=== PATIENT | female | born 1950 | race Caucasian/White ===

== ENCOUNTER 2017-10-03 14:46 | Outpatient (CLI) | payer MEDICARE | END 2017-10-03 14:47 | disposition home or self-care (01) | LOC: BICMAMMO 14:46 | PROVIDERS: ATTEND Family Medicine | DX: Z12.31 Encounter for screening mammogram for malignant neoplasm of breast (principal) | CPT/HCPCS: 77063; 77067 ==

== ENCOUNTER 2017-10-13 08:03 | Outpatient (CLI) | payer MEDICARE | END 2017-10-13 08:04 | disposition home or self-care (01) | LOC: BICULT 08:03 | PROVIDERS: ATTEND Family Medicine | DX: R10.11 Right upper quadrant pain (principal); K80.20 Calculus of gallbladder without cholecystitis without obstruction; K76.0 Fatty (change of) liver, not elsewhere classified; R16.0 Hepatomegaly, not elsewhere classified; N28.1 Cyst of kidney, acquired | CPT/HCPCS: 76705 ==

== ENCOUNTER 2017-11-14 14:19 | Outpatient (CLI) | payer MEDICARE ==
[2017-11-14 15:42] LABS: #Basophils 0.1 thou/uL (0.0-0.2); #Eosinphils 0.2 thou/uL (0.0-0.7); #Monocytes 0.5 thou/uL (0.11-0.59); #Neutrophils 5.6 thou/uL (1.40-6.50); %Basophils 1.1 % (0.0-1.0); %Eosinophils 1.9 % (0.0-10.0); %Lymphocytes 23.6 % (21.0-51.0); %Monocytes 6.4 % (0.0-10.0); Hemoglobin 15.9 g/dL (12.0-16.0); Mean Corpuscular HGB CONC 36.3 g/dL (32.0-36.0); Mean Corpuscular Hemoglobin 32.7 pg (27.0-31.0); Mean Platelet Volume 8.5 fL (7.4-10.4); Platelet Count 179 thou/uL (130-400); RBC Distribution Width 11.6 % (11.5-14.5); Red Blood Cell (RBC) Count 4.86 mill/uL (4.20-5.40); White Blood Cell (WBC) Count 8.4 thou/uL (4.8-10.8)
[2017-11-14 15:59] LABS: ALT (SGPT) 20 U/L (8-55); AST (SGOT) 13 U/L (5-34); Albumin 4.5 g/dL (3.4-4.8); Alkaline Phosphatase 85 U/L (40-150); Anion Gap 15 mmol/L (10-20); BUN (Urea Nitrogen) 23 mg/dL (9.8-20.1); Bilirubin, Direct 0.1 mg/dL (0.1-0.3); Bilirubin, Total 0.6 mg/dL (0.2-1.2); Calc. Creatinine Clearance 0 mL/min (70-130); Calcium 9.7 mg/dL (7.8-10.44); Carbon Dioxide 23 mmol/L (23-31); Chloride 105 mmol/L (98-107); Estimated GFR-MDRD 63; Globulin 2.9 g/dL (2.4-3.5); Glucose 218 mg/dL (80-115); Potassium 4.4 mmol/L (3.5-5.1); Protein, Total 7.4 g/dL (6.0-8.3); Sodium 139 mmol/L (136-145)
--- NOTE | 2017-11-15 12:08 | EKG ---
Test Reason : Blood Pressure : / mmHG Vent. Rate : 083 BPM Atrial Rate : 083 BPM P-R Int : 184 ms QRS Dur : 112 ms QT Int : 404 ms P-R-T Axes : 051 -66 058 degrees QTc Int : 474 ms Normal sinus rhythm Left axis deviation Incomplete right bundle branch block Cannot rule out Anterior infarct , age undetermined Abnormal ECG No previous ECGs available Confirmed by LUAN NOONAN ([id number]) on 11/15/2017 12:08:12 PM Referred By: JULIO CESAR Confirmed By:LUAN NOONAN
== END 2017-11-14 14:20 | disposition home or self-care (01) ==
LOC: LABBT 14:19
PROVIDERS: ATTEND Surgery
DX: Z01.818 Encounter for other preprocedural examination (principal); K80.20 Calculus of gallbladder without cholecystitis without obstruction
CPT/HCPCS: 80053; 80076; 85025; 93005; 93010

== ENCOUNTER 2017-11-22 06:48 | Day surgery (SDC) | payer MEDICARE ==
[2017-11-14 14:52] VITALS: BMI 30.6
[2017-11-22] MEDS ORDERED: cefOXitin 2 GM VIAL ONE (07:48)
[2017-11-22] MEDS ORDERED: Sodium Chloride 0.9% 100 ML ONE (07:49)
[2017-11-22] MEDS ORDERED: Bupivacaine/Epinephrine 0.25% 30 ML VIAL ONE (08:28)
[2017-11-22] MEDS ORDERED: Promethazine HCl 25 MG/ML VIAL ONE (08:36)
[2017-11-22] MEDS ORDERED: Fentanyl 100 MCG/2 ML VIAL ONE ×2 (08:36→10:10)
[2017-11-22] MEDS ORDERED: hydrALAZINE 20 MG/ML VIAL ONE (09:45)
[2017-11-22] MEDS ORDERED: Lidocaine 1% PF 5 ML VIAL ONE (09:50)
[2017-11-22] MEDS ORDERED: PROPOFOL 200 MG/20 ML VIAL ONE (09:50)
[2017-11-22] MEDS ORDERED: Glycopyrrolate 0.2 MG/ML 5 ML SYRINGE ONE (09:50)
[2017-11-22] MEDS ORDERED: ePHEDrine/0.9% NaCl/PF SYRINGE 50 mg/10 ml ONE (09:50)
[2017-11-22] MEDS ORDERED: Ondansetron HCl/PF 4 MG/2 ML Vial ONE (09:50)
[2017-11-22] MEDS ORDERED: PHENYLEPHRINE-NS 100 MCG/ML 10 ML SYRINGE ONE (09:50)
--- NOTE | 2017-11-22 10:05 | OP ---
PREOPERATIVE DIAGNOSIS: Symptomatic cholelithiasis. SURGEON: Juan Barahona M.D. PROCEDURE PERFORMED: Laparoscopic cholecystectomy. INDICATIONS: The patient is a 67-year-old female who has been having episodic right upper quadrant p ain. Ultrasound showed cholelithiasis. FINDINGS: She had a very small caliber cystic duct. She had a fatty liver. DESCRIPTION OF PROCEDURE: After informed consent was obtained, the patient was taken to the operatin g room, given general endotracheal anesthesia. She was placed in the supine position. The abdomen w as prepped and draped in usual fashion. Local anesthesia infiltrated subcutaneously and deep. A sub umbilical incision was performed. The subcu divided sharply. The fascia grasped and two stay suture s of 0 Vicryl placed to either side of midline. Midline incised. Digital palpation revealed no loca l adhesions. A blunt 10/12 mm trocar inserted. Pneumoperitoneum was created to a pressure of 15 mmH g. Zero degree laparoscope inserted under direct vision, three 5 mm ports placed subcostally. Gallb ladder grasped and advanced superiorly. The peritoneum lysed distally to reveal the cystic duct and artery. These were triply ligated with Hemoclips and divided. The gallbladder was removed from its fossa utilizing electrocautery, removed from the abdomen through the umbilical port. Hemostasis was assured. Trocars and retractors removed. The fascia closed with interrupted 0 Vicryl suture. The s kin closed with interrupted 4-0 Rapide. Steri-Strips applied. Sterile bandages applied. Patient to lerated the procedure well and was transferred to recovery in good condition. Sponge and needle coun t verified correct x2.
== END 2017-11-22 12:02 | disposition home or self-care (01) ==
LOC: SDC 06:48
PROVIDERS: ATTEND Surgery
PROC: 0FT44ZZ Resection of Gallbladder, Percutaneous Endoscopic Approach (ICD-10-PCS; principal; 2017-11-22)
DX: K81.1 Chronic cholecystitis (principal); I10 Essential (primary) hypertension; E78.5 Hyperlipidemia, unspecified; E11.9 Type 2 diabetes mellitus without complications; N90.812 Female genital mutilation Type II status; F17.200 Nicotine dependence, unspecified, uncomplicated; Z79.4 Long term (current) use of insulin; Z79.899 Other long term (current) drug therapy
CPT/HCPCS: 36416; 88304; 96374; J0360; J0694; J2001; J2405; J2550; J2704; J3010; J7050; J7620

== ENCOUNTER 2018-09-04 13:44 | Outpatient (CLI) | payer MEDICARE ==
--- NOTE | 2018-09-04 14:51 | MRI ---
MRI BRAIN NONCONTRAST: DATE: 09/04/18 HISTORY: 68-year-old female with R51, new onset of headache after age 48. Visual changes. COMPARISON: None. FINDINGS: There are high grade bilateral degenerative facet changes in the upper cervical spine. There is high grade degenerative disc disease at C3-4. These are incompletely imaged, seen on sagittal images. Vent ricles are normal in size and configuration. No mass effect or midline shift. No evidence of recent o r remote intra-axial hemorrhage. No extra-axial fluid collection. No restricted diffusion. There is a small region of mild streaky T2 hyperintensity (demonstrated on FLAIR axial image 15 to 27 , series 7) in the posterior medial aspect of the left temporal lobe. Elsewhere, there are a few tiny punctate scattered foci of T2 hyperintensity on the order of 2 mm in size each in the bilateral phillips radiate, consistent with minimal chronic ischemic white matter jonas ges. There are mild chronic ischemic white matter changes in the darnell. IMPRESSION: 1. No acute intracranial findings. 2. Small old insult, presumably a small old infarction, at the posterior medial aspect of the le ft temporal lobe. 3. Mild chronic ischemic white matter changes of the darnell. 4. Cervical spondylosis. JN R POS: TPC
== END 2018-09-04 13:45 | disposition home or self-care (01) ==
LOC: BICMRI 13:44
PROVIDERS: ATTEND Family Medicine
DX: R51 Headache (principal); M47.812 Spondylosis without myelopathy or radiculopathy, cervical region
CPT/HCPCS: 70551

== ENCOUNTER 2019-04-25 12:19 | Outpatient (CLI) | payer MEDICARE ==
--- NOTE | 2019-04-25 13:30 | MMO ---
Bilateral MAMMO Bilat Screen [facility]. CLINICAL HISTORY: Patient is 69 years old and is seen for screening. The patient has no family history of breast cancer. The patient has no personal history of cancer. VIEWS: The views performed were: bilateral craniocaudal with tomosynthesis and bilateral mediolateral oblique with tomosynthesis. FILMS COMPARED: The present examination has been compared to prior imaging studies performed at [facility] on 10/21/2015 and 10/03/2017. This study has been interpreted with the assistance of computer-aided detection. MAMMOGRAM FINDINGS: There are scattered fibroglandular densities. Finding 1: There are stable benign appearing calcifications seen in both breasts. Finding 2: There are stable focal asymmetries seen in both breasts. There are no suspicious masses, suspicious calcifications, or new areas of architectural distortion. IMPRESSION: THERE IS NO MAMMOGRAPHIC EVIDENCE OF MALIGNANCY. A ROUTINE FOLLOW-UP MAMMOGRAM IN 1 YEAR IS RECOMMENDED. THE RESULTS OF THIS EXAM WERE SENT TO THE PATIENT. ACR BI-RADS Category 2 - Benign finding MAMMOGRAPHY NOTE: 1. A negative mammogram report should not delay a biopsy if a dominant of clinically suspicious mass is present. 2. Approximately 10% to 15% of breast cancers are not detected by mammography. 3. Adenosis and dense breasts may obscure an underlying neoplasm. Reported by: MICHAEL BURKS MD Electonically Signed: [id number]
== END 2019-04-25 12:20 | disposition home or self-care (01) ==
LOC: BICMAMMO 12:19
PROVIDERS: ATTEND Family Medicine
DX: Z12.31 Encounter for screening mammogram for malignant neoplasm of breast (principal)
CPT/HCPCS: 77063; 77067

== ENCOUNTER 2019-09-02 11:25 | Outpatient (CLI) | payer MEDICARE ==
--- NOTE | 2019-09-02 11:53 | RAD ---
Radiograph thoracic spine 3 views: 09/02/2019 HISTORY: 69-year-old female with acute left-sided thoracic back pain, status post fall last week. FINDINGS: Vertebral body heights are maintained. Mild dextroscoliosis of lower thoracic spine. Pedicles appear to be grossly intact. Several levels of mild to moderate degenerative disc disease in the mid and lower thoracic spine. IMPRESSION: 1. No compression fracture identified. 2. Mid and lower lumbar spondylosis associated with mild scoliosis.
--- NOTE | 2019-09-02 12:12 | RAD ---
EXAM: XR Ribs Lt>=2 View STANDARD PROVIDED CLINICAL HISTORY: Acute left-sided thoracic back pain after a fall last week. COMPARISON: None FINDINGS: Left lung is clear without pneumothorax or pleural effusion appreciated. Vascular calcification are s een in the thoracic aorta. No left-sided rib fracture is visualized. IMPRESSION: No left-sided rib fracture visualized.
== END 2019-09-02 11:26 | disposition home or self-care (01) ==
LOC: BICRAD 11:25
PROVIDERS: ATTEND Family Medicine
DX: M54.6 Pain in thoracic spine (principal); M47.816 Spondylosis without myelopathy or radiculopathy, lumbar region; M41.9 Scoliosis, unspecified
CPT/HCPCS: 72072

== ENCOUNTER 2021-06-02 12:38 | Outpatient (CLI) | payer MEDICARE | END 2021-06-02 12:39 | disposition home or self-care (01) | LOC: BICMAMMO 12:38 | PROVIDERS: ATTEND Family Medicine | DX: Z12.31 Encounter for screening mammogram for malignant neoplasm of breast (principal) | CPT/HCPCS: 77063; 77067 ==

== ENCOUNTER 2023-02-13 12:47 | Outpatient (CLI) | payer MEDICARE | END 2023-02-13 12:48 | disposition home or self-care (01) | LOC: BICMAMMO 12:47 | PROVIDERS: ATTEND Family Medicine | DX: Z12.31 Encounter for screening mammogram for malignant neoplasm of breast (principal) | CPT/HCPCS: 77063; 77067 ==

== ENCOUNTER 2023-12-22 14:44 | Inpatient (IN) | payer MEDICARE ==
[2023-12-22 19:58] VITALS: BMI 27.6
[2023-12-22] MEDS ORDERED: Ondansetron ODT 4 MG TAB PO PRN (20:23)
[2023-12-22] MEDS ORDERED: Ondansetron PF 4 MG/2 ML Vial IVP PRN (20:23)
[2023-12-22] MEDS ORDERED: Dextrose 5% in Water 1,000 ML IV PRN (20:27)
[2023-12-22] MEDS ORDERED: Glucagon 1 MG/ML KIT IM PRN (20:27)
[2023-12-22] MEDS ORDERED: Dextrose 50% Abboject 50 ML SYRINGE SLOW IVP PRN (20:27)
[2023-12-22] MEDS: Famotidine 20 MG TAB PO SCH (21:10)
[2023-12-22] MEDS: Atenolol 50 MG TAB PO SCH (21:10)
[2023-12-22] MEDS: Insulin Glargine 30 UNITS/0.3 ML VIAL SC SCH (21:10)
[2023-12-22] MEDS: Famotidine/PF 20 mg/2ml Vial SLOW IVP SCH (21:11)
[2023-12-22] MEDS: Atorvastatin Calcium 40 MG TAB PO SCH (21:45)
[2023-12-23 04:25] LABS: #Basophils 0.06 10x3/uL (0.0-0.2); %Basophils 0.7 % (0.0-1.0); %Eosinophils 2.9 % (0.0-10.0); %Lymphocytes 30.6 % (21.0-51.0); %Monocytes 7.5 % (0.0-10.0); %Neutrophils 57.9 % (42.0-75.0); Hematocrit 40.5 % (36.0-47.0); Hemoglobin 13.9 g/dL (12.0-16.0); Mean Corpuscular HGB CONC 34.3 g/dL (32.0-36.0); Mean Corpuscular Hemoglobin 30.5 pg (27.0-31.0); Mean Platelet Volume 10.3 fL (7.4-10.4); Platelet Count 185 10x3/uL (130-400); RBC Distribution Width 12.2 % (11.5-14.5); Red Blood Cell (RBC) Count 4.55 mill/uL (4.20-5.40)
[2023-12-23 04:43] LABS: ALT (SGPT) 20 U/L (8-55); AST (SGOT) 11 U/L (5-34); Albumin 3.3 g/dL (3.4-4.8); Alkaline Phosphatase 67 U/L (40-110); Anion Gap 15 mmol/L (10-20); BUN (Urea Nitrogen) 18 mg/dL (9.8-20.1); Bilirubin, Total 0.6 mg/dL (0.2-1.2); Calc. Creatinine Clearance 72 mL/min (70-130); Calcium 9.4 mg/dL (7.8-10.44); Carbon Dioxide 24 mmol/L (23-31); Chloride 108 mmol/L (98-107); Estimated GFR 79; Globulin 2.9 g/dL (2.4-3.5); Glucose 128 mg/dL (83-110); Potassium 3.8 mmol/L (3.5-5.1); Protein, Total 6.2 g/dL (5.8-8.1); Sodium 143 mmol/L (136-145)
[2023-12-23] MEDS ORDERED: Famotidine/PF 20 mg/2ml Vial SLOW IVP SCH (09:00)
[2023-12-23] MEDS ORDERED: Atenolol 25 MG TAB PO SCH (09:00)
[2023-12-23] MEDS ORDERED: Famotidine 20 MG TAB PO SCH (09:00)
[2023-12-23] MEDS: hydrALAZINE 20 MG/ML VIAL SLOW IVP PRN (09:13)
[2023-12-23] MEDS: Enoxaparin 40 MG (0.4 mL) SYRINGE SC SCH (09:19)
[2023-12-23] MEDS: Famotidine 20 MG TAB PO SCH (09:19)
[2023-12-23] MEDS: Clopidogrel Bisulfate 75 MG TAB PO SCH (09:19)
[2023-12-23] MEDS: levETIRAcetam 500 mg/5 ml Oral Solution PO SCH (09:20)
[2023-12-23] MEDS: Famotidine/PF 20 mg/2ml Vial SLOW IVP SCH (09:20)
[2023-12-23] MEDS: Atenolol 50 MG TAB PO SCH ×2 (11:18→20:48)
[2023-12-23] MEDS: Atorvastatin Calcium 40 MG TAB PO SCH (20:47)
[2023-12-23] MEDS: Insulin Lispro 100 UNIT/ML 10 ML VIAL SC PRN (21:07)
[2023-12-24] MEDS: Ketorolac Tromethamine 30 MG (1 mL) VIAL IVP SCH (01:30)
[2023-12-24 04:50] LABS: #Basophils 0.05 10x3/uL (0.0-0.2); %Basophils 0.5 % (0.0-1.0); %Eosinophils 2.3 % (0.0-10.0); %Lymphocytes 24.2 % (21.0-51.0); %Monocytes 7.4 % (0.0-10.0); %Neutrophils 65.1 % (42.0-75.0); Hematocrit 41.5 % (36.0-47.0); Hemoglobin 14.9 g/dL (12.0-16.0); Mean Corpuscular HGB CONC 35.9 g/dL (32.0-36.0); Mean Corpuscular Hemoglobin 30.3 pg (27.0-31.0); Mean Corpuscular Volume 84.3 fL (78.0-98.0); Mean Platelet Volume 10.8 fL (7.4-10.4); Platelet Count 191 10x3/uL (130-400); Red Blood Cell (RBC) Count 4.92 mill/uL (4.20-5.40)
[2023-12-24 05:04] LABS: Anion Gap 14 mmol/L (10-20); BUN (Urea Nitrogen) 22 mg/dL (9.8-20.1); Calc. Creatinine Clearance 67 mL/min (70-130); Calcium 9.5 mg/dL (7.8-10.44); Carbon Dioxide 24 mmol/L (23-31); Chloride 107 mmol/L (98-107); Estimated GFR 73; Glucose 142 mg/dL (83-110); Potassium 3.6 mmol/L (3.5-5.1); Sodium 141 mmol/L (136-145)
[2023-12-24] MEDS: Insulin Lispro 100 UNIT/ML 10 ML VIAL SC PRN (05:58)
[2023-12-24] MEDS ORDERED: Acetaminophen 325 MG TAB PO PRN (08:49)
[2023-12-24] MEDS ORDERED: traZODone HCl 50 MG TAB PO PRN (08:56)
[2023-12-24] MEDS: hydrALAZINE 25 MG TAB PO SCH (10:23)
[2023-12-24] MEDS: Lidocaine 4% Patch TD SCH (10:25)
[2023-12-24] MEDS: Diclofenac 1% 50 GM TOPICAL GEL TP SCH (10:26)
[2023-12-24] MEDS: Aspirin 81 mg Enteric Coated Tablet PO SCH (16:28)
[2023-12-24] MEDS: Melatonin 3 MG TAB PO SCH ×2 (19:04→22:04)
[2023-12-24] MEDS: Promethazine HCl 25 MG in Sodium Chloride 0.9% 50 ML IVPB SCH (19:14)
[2023-12-24] MEDS: Transdermal Patch Removal TOP SCH (22:07)
[2023-12-25 04:33] LABS: #Basophils 0.06 10x3/uL (0.0-0.2); %Basophils 0.7 % (0.0-1.0); %Eosinophils 2.7 % (0.0-10.0); %Lymphocytes 25.1 % (21.0-51.0); %Monocytes 7.7 % (0.0-10.0); %Neutrophils 63.6 % (42.0-75.0); Hematocrit 42.5 % (36.0-47.0); Hemoglobin 14.4 g/dL (12.0-16.0); Mean Corpuscular HGB CONC 33.9 g/dL (32.0-36.0); Mean Corpuscular Hemoglobin 30.4 pg (27.0-31.0); Mean Corpuscular Volume 89.9 fL (78.0-98.0); Mean Platelet Volume 10.5 fL (7.4-10.4); Platelet Count 191 10x3/uL (130-400); RBC Distribution Width 12.3 % (11.5-14.5); Red Blood Cell (RBC) Count 4.73 mill/uL (4.20-5.40)
[2023-12-25 05:04] LABS: Anion Gap 12 mmol/L (10-20); BUN (Urea Nitrogen) 27 mg/dL (9.8-20.1); Calc. Creatinine Clearance 66 mL/min (70-130); Calcium 9.2 mg/dL (7.8-10.44); Carbon Dioxide 24 mmol/L (23-31); Chloride 109 mmol/L (98-107); Estimated GFR 71; Glucose 219 mg/dL (83-110); Sodium 141 mmol/L (136-145)
[2023-12-25 09:05] VITALS: TEMP 98
[2023-12-25] MEDS: Aspirin 81 mg Enteric Coated Tablet PO SCH (10:10)
[2023-12-25] MEDS: Sodium Chloride 0.65% Nasal 44 ML BOT EA NARE PRN (16:09)
[2023-12-25 21:22] VITALS: BP 172/69
== END 2023-12-25 22:05 | disposition home health service (06) | DRG 66 ==
LOC: 2SE 19:35
PROVIDERS: ADMIT Specialist; ATTEND Family Medicine
PROC: 4A00X4Z Measurement of Central Nervous Electrical Activity, External Approach (ICD-10-PCS; principal; 2023-12-23)
DX: I63.532 Cerebral infarction due to unspecified occlusion or stenosis of left posterior cerebral artery (principal); Z79.899 Other long term (current) drug therapy; Z79.4 Long term (current) use of insulin; I10 Essential (primary) hypertension; Z90.49 Acquired absence of other specified parts of digestive tract; Z98.51 Tubal ligation status; Z90.89 Acquired absence of other organs; E11.40 Type 2 diabetes mellitus with diabetic neuropathy, unspecified; I65.21 Occlusion and stenosis of right carotid artery; H53.47 Heteronymous bilateral field defects; R00.1 Bradycardia, unspecified; Z79.82 Long term (current) use of aspirin; R56.9 Unspecified convulsions
CPT/HCPCS: 36415; 80048; 80053; 83735; 85025; 93005; 93010; 95816; 95819; J0360; J1650; J1815; J1885; J2550; J3490

== ENCOUNTER 2023-12-26 19:52 | Inpatient (IN) | payer MEDICARE ==
[2023-12-26 20:55] LABS: #Basophils 0.06 10x3/uL (0.0-0.2); %Basophils 0.7 % (0.0-1.0); %Eosinophils 2.4 % (0.0-10.0); %Lymphocytes 22.7 % (21.0-51.0); %Monocytes 9.4 % (0.0-10.0); %Neutrophils 64.4 % (42.0-75.0); Hematocrit 40.1 % (36.0-47.0); Hemoglobin 14.2 g/dL (12.0-16.0); Mean Corpuscular HGB CONC 35.4 g/dL (32.0-36.0); Mean Corpuscular Hemoglobin 31.1 pg (27.0-31.0); Mean Corpuscular Volume 87.7 fL (78.0-98.0); Mean Platelet Volume 10.7 fL (7.4-10.4); Platelet Count 189 10x3/uL (130-400); RBC Distribution Width 12.1 % (11.5-14.5); Red Blood Cell (RBC) Count 4.57 mill/uL (4.20-5.40)
[2023-12-26 21:11] LABS: ALT (SGPT) 29 U/L (8-55); AST (SGOT) 20 U/L (5-34); Albumin 3.6 g/dL (3.4-4.8); Alkaline Phosphatase 68 U/L (40-110); Anion Gap 12 mmol/L (10-20); BUN (Urea Nitrogen) 21 mg/dL (9.8-20.1); Bilirubin, Total 0.5 mg/dL (0.2-1.2); Calc. Creatinine Clearance 0 mL/min (70-130); Calcium 9.3 mg/dL (7.8-10.44); Carbon Dioxide 23 mmol/L (23-31); Chloride 110 mmol/L (98-107); Estimated GFR 75; Globulin 3.1 g/dL (2.4-3.5); Glucose 139 mg/dL (83-110); Magnesium 1.9 mg/dL (1.6-2.6); Potassium 3.6 mmol/L (3.5-5.1); Protein, Total 6.7 g/dL (5.8-8.1); Sodium 141 mmol/L (136-145)
[2023-12-26 21:16] LABS: Troponin I 0.021 ng/mL (< 0.028)
[2023-12-26 22:02] LABS: Bacteria/HPF None Seen HPF (None Seen); Bilirubin Negative (Negative); Blood, Urine Negative (Negative); CAUTI Indications for Culture Alt mental st,lethar; Clarity Clear (Clear); Glucose, Urine (Dipstick) 100 mg/dL (Negative); Ketone, Urine Negative (Negative); Leukocyte 25 Leu/uL (Negative); Nitrite Negative (Negative); Protein, Urine (Dipstick) Negative (Neg-Trace); RBC/HPF 0-3 HPF (0-3); Specific Gravity, Urine 1.011 (1.002-1.036); Squamous Epithelial 0-3 HPF (0-3); Urobilinogen Normal mg/dL (Less than 2); WBC/HPF 0-3 HPF (0-3)
[2023-12-26 22:06] LABS: Urine Culture Reflex No No
[2023-12-26] MEDS ORDERED: Ondansetron ODT 4 MG TAB PO PRN (22:47)
[2023-12-26] MEDS ORDERED: Ondansetron PF 4 MG/2 ML Vial IVP PRN (22:47)
[2023-12-26] MEDS ORDERED: Acetaminophen 325 MG TAB PO PRN (22:47)
[2023-12-26] MEDS ORDERED: Acetaminophen 650 MG Suppository PR PRN (22:47)
[2023-12-26] MEDS ORDERED: Glucagon 1 MG/ML KIT IM PRN (22:51)
[2023-12-26] MEDS ORDERED: Dextrose 5% in Water 1,000 ML IV PRN (22:51)
[2023-12-26] MEDS ORDERED: Insulin Lispro 100 UNIT/ML 10 ML VIAL SC PRN (22:51)
[2023-12-26] MEDS ORDERED: Dextrose 50% Abboject 50 ML SYRINGE SLOW IVP PRN (22:51)
[2023-12-26] MEDS ORDERED: Melatonin 3 MG TAB PO PRN (23:23)
[2023-12-27] MEDS ORDERED: hydrALAZINE 25 MG TAB ONE ×2 (00:16→09:19)
[2023-12-27] MEDS ORDERED: Atorvastatin Calcium 40 MG TAB ONE (00:16)
[2023-12-27] MEDS ORDERED: levETIRAcetam 500 MG TAB ONE ×2 (00:17→09:19)
[2023-12-27] MEDS: Atorvastatin Calcium 40 MG TAB PO SCH ×2 (00:24→20:44)
[2023-12-27] MEDS: levETIRAcetam 500 MG TAB PO SCH ×2 (00:29→09:49)
[2023-12-27] MEDS: hydrALAZINE 25 MG TAB PO SCH ×2 (00:29→09:48)
[2023-12-27 00:40] LABS: Phosphorus 3.4 mg/dL (2.3-4.7)
[2023-12-27 04:40] LABS: #Basophils 0.05 10x3/uL (0.0-0.2); %Basophils 0.7 % (0.0-1.0); %Eosinophils 2.7 % (0.0-10.0); %Lymphocytes 28.6 % (21.0-51.0); %Monocytes 9.7 % (0.0-10.0); %Neutrophils 57.9 % (42.0-75.0); Hematocrit 40.2 % (36.0-47.0); Hemoglobin 13.6 g/dL (12.0-16.0); Mean Corpuscular HGB CONC 33.8 g/dL (32.0-36.0); Mean Corpuscular Hemoglobin 30.2 pg (27.0-31.0); Mean Corpuscular Volume 89.3 fL (78.0-98.0); Mean Platelet Volume 10.7 fL (7.4-10.4); Platelet Count 196 10x3/uL (130-400); RBC Distribution Width 12.2 % (11.5-14.5)
[2023-12-27 05:06] LABS: Anion Gap 14 mmol/L (10-20); BUN (Urea Nitrogen) 16 mg/dL (9.8-20.1); Calc. Creatinine Clearance 0 mL/min (70-130); Carbon Dioxide 23 mmol/L (23-31); Chloride 109 mmol/L (98-107); Potassium 3.5 mmol/L (3.5-5.1); Sodium 142 mmol/L (136-145)
[2023-12-27 05:07] LABS: Calcium 9.1 mg/dL (7.8-10.44); Estimated GFR 87; Glucose 128 mg/dL (83-110)
[2023-12-27] MEDS ORDERED: Aspirin 81 mg Enteric Coated Tablet ONE (09:18)
[2023-12-27] MEDS ORDERED: Enoxaparin 40 MG (0.4 mL) SYRINGE ONE (09:19)
[2023-12-27] MEDS ORDERED: Clopidogrel Bisulfate 75 MG TAB ONE (09:19)
[2023-12-27] MEDS: Enoxaparin 40 MG (0.4 mL) SYRINGE SC SCH (11:00)
[2023-12-27] MEDS: Aspirin 81 mg Enteric Coated Tablet PO SCH (11:01)
[2023-12-27] MEDS: Clopidogrel Bisulfate 75 MG TAB PO SCH (11:01)
[2023-12-27] MEDS: Insulin Glargine 30 UNITS/0.3 ML VIAL SC SCH (11:30)
[2023-12-27 17:43] LABS: Amphetamine Not Detected (NotDetected); Barbiturates Screen Not Detected (NotDetected); Benzodiazepine Screen Not Detected (NotDetected); Cocaine Metabolite Screen Not Detected (NotDetected); Methadone Not Detected (NotDetected); Methamphetamine Not Detected (NotDetected); Opiate Screen Not Detected (NotDetected); Oxycodone Screen Not Detected (NotDetected); Phencyclidine (PCP) Not Detected (NotDetected); THC/Cannabinoid Screen Not Detected (NotDetected); Tricyclic Screen Not Detected (NotDetected)
[2023-12-27 18:36] VITALS: BMI 26.6
[2023-12-28] MEDS: hydrALAZINE 25 MG TAB PO SCH (00:50)
[2023-12-29 08:39] LABS: #Basophils 0.06 10x3/uL (0.0-0.2); %Basophils 0.8 % (0.0-1.0); %Eosinophils 1.9 % (0.0-10.0); %Monocytes 8.4 % (0.0-10.0); %Neutrophils 64.6 % (42.0-75.0); Hematocrit 44.1 % (36.0-47.0); Hemoglobin 15.3 g/dL (12.0-16.0); Mean Corpuscular HGB CONC 34.7 g/dL (32.0-36.0); Mean Corpuscular Hemoglobin 30.5 pg (27.0-31.0); Mean Platelet Volume 10.5 fL (7.4-10.4); Platelet Count 207 10x3/uL (130-400); RBC Distribution Width 11.9 % (11.5-14.5); Red Blood Cell (RBC) Count 5.01 mill/uL (4.20-5.40)
[2023-12-29 09:00] LABS: ALT (SGPT) 34 U/L (8-55); AST (SGOT) 19 U/L (5-34); Albumin 3.9 g/dL (3.4-4.8); Alkaline Phosphatase 77 U/L (40-110); Anion Gap 16 mmol/L (10-20); BUN (Urea Nitrogen) 15 mg/dL (9.8-20.1); Bilirubin, Total 0.8 mg/dL (0.2-1.2); Calc. Creatinine Clearance 68 mL/min (70-130); Calcium 9.6 mg/dL (7.8-10.44); Carbon Dioxide 24 mmol/L (23-31); Chloride 106 mmol/L (98-107); Estimated GFR 78; Glucose 180 mg/dL (83-110); Potassium 3.7 mmol/L (3.5-5.1); Protein, Total 6.9 g/dL (5.8-8.1); Sodium 142 mmol/L (136-145)
[2023-12-29] MEDS: Atenolol 50 MG TAB PO SCH (10:53)
[2023-12-29 12:38] VITALS: BP 137/77; TEMP 97.8
== END 2023-12-29 17:14 | disposition home or self-care (01) | DRG 70 ==
LOC: ERS 19:52 → SUATTDRO 19:52 → ERHOLD 22:47 → 2SW 12-27 18:21 → OBSVTOIN 12-28 14:55
PROVIDERS: ADMIT Family Medicine; ATTEND Internal Medicine
PROC: 4A00X4Z Measurement of Central Nervous Electrical Activity, External Approach (ICD-10-PCS; principal; 2023-12-27)
DX: G93.89 Other specified disorders of brain (principal); I63.532 Cerebral infarction due to unspecified occlusion or stenosis of left posterior cerebral artery; G93.40 Encephalopathy, unspecified; I35.1 Nonrheumatic aortic (valve) insufficiency; E11.65 Type 2 diabetes mellitus with hyperglycemia; I44.1 Atrioventricular block, second degree; I10 Essential (primary) hypertension; E78.00 Pure hypercholesterolemia, unspecified; G40.909 Epilepsy, unspecified, not intractable, without status epilepticus; E11.40 Type 2 diabetes mellitus with diabetic neuropathy, unspecified; F17.210 Nicotine dependence, cigarettes, uncomplicated; Z90.49 Acquired absence of other specified parts of digestive tract; Z90.89 Acquired absence of other organs; Z88.5 Allergy status to narcotic agent; Z98.51 Tubal ligation status; Z79.4 Long term (current) use of insulin; Z79.82 Long term (current) use of aspirin
CPT/HCPCS: 36415; 36416; 80048; 80053; 80306; 80307; 81001; 83735; 83880; 84100; 84443; 84484; 85025; 93005; 93306; 95819; 96372; G0378; J1650; J1815

== ENCOUNTER 2024-03-20 13:04 | Emergency (ER) | payer MEDICARE ==
[2024-03-20 13:46] LABS: #Basophils 0.08 10x3/uL (0.0-0.2); %Eosinophils 2.8 % (0.0-10.0); %Lymphocytes 20.7 % (21.0-51.0); %Monocytes 6.8 % (0.0-10.0); %Neutrophils 68.5 % (42.0-75.0); Hematocrit 40.5 % (36.0-47.0); Hemoglobin 14.4 g/dL (12.0-16.0); Mean Corpuscular HGB CONC 35.6 g/dL (32.0-36.0); Mean Corpuscular Hemoglobin 31.2 pg (27.0-31.0); Mean Corpuscular Volume 87.9 fL (78.0-98.0); Mean Platelet Volume 10.6 fL (7.4-10.4); Platelet Count 218 10x3/uL (130-400); RBC Distribution Width 12.6 % (11.5-14.5); Red Blood Cell (RBC) Count 4.61 mill/uL (4.20-5.40)
[2024-03-20 13:57] LABS: ALT (SGPT) 29 U/L (8-55); AST (SGOT) 16 U/L (5-34); Albumin 4.3 g/dL (3.4-4.8); Alkaline Phosphatase 73 U/L (40-110); Anion Gap 13 mmol/L (10-20); BUN (Urea Nitrogen) 34 mg/dL (9.8-20.1); Bilirubin, Total 0.4 mg/dL (0.2-1.2); Calc. Creatinine Clearance 0 mL/min (70-130); Calcium 9.8 mg/dL (7.8-10.44); Carbon Dioxide 20 mmol/L (23-31); Chloride 115 mmol/L (98-107); Estimated GFR 62; Globulin 3.1 g/dL (2.4-3.5); Glucose 149 mg/dL (83-110); Potassium 4.2 mmol/L (3.5-5.1); Protein, Total 7.4 g/dL (5.8-8.1); Sodium 144 mmol/L (136-145)
[2024-03-20 14:01] LABS: Troponin I Less than 0.010 ng/mL (< 0.028)
== END 2024-03-20 16:18 | disposition home or self-care (01) ==
LOC: ERS 13:04
DX: H53.9 Unspecified visual disturbance (principal); I10 Essential (primary) hypertension; E11.9 Type 2 diabetes mellitus without complications; Z86.73 Personal history of transient ischemic attack (TIA), and cerebral infarction without residual deficits; Z87.891 Personal history of nicotine dependence
CPT/HCPCS: 36415; 70450; 80053; 83880; 84484; 85025; 93005

== ENCOUNTER 2024-04-24 10:13 | Outpatient (CLI) | payer MEDICARE | END 2024-04-24 10:14 | disposition home or self-care (01) | LOC: BICMAMMO 10:13 | PROVIDERS: ATTEND Family Medicine | DX: Z12.31 Encounter for screening mammogram for malignant neoplasm of breast (principal); Z78.0 Asymptomatic menopausal state; M85.851 Other specified disorders of bone density and structure, right thigh; M85.852 Other specified disorders of bone density and structure, left thigh | CPT/HCPCS: 77063; 77067; 77080 ==

== ENCOUNTER 2024-04-27 07:29 | Emergency (ER) | payer MEDICARE ==
[2024-04-27] MEDS ORDERED: Losartan 25 MG TAB ONE (07:49)
== END 2024-04-27 09:26 | disposition home or self-care (01) ==
LOC: ERS 07:29
DX: I10 Essential (primary) hypertension (principal); E11.9 Type 2 diabetes mellitus without complications; Z87.891 Personal history of nicotine dependence
CPT/HCPCS: 93005; 99283

== ENCOUNTER 2024-04-30 14:04 | Outpatient (CLI) | payer MEDICARE | END 2024-04-30 14:05 | disposition home or self-care (01) | LOC: CT 14:04 | PROVIDERS: ATTEND Family Medicine | DX: R42 Dizziness and giddiness (principal) | CPT/HCPCS: 36415; 70470; 82565 ==